=== PATIENT | male | born 1955 | race Caucasian/White ===

== ENCOUNTER 2016-12-25 02:28 | Emergency (ER) | payer MEDICARE, OTHER ==
[~2016-12-25] VITALS: Ht 177.8 cm; Wt 98.3 kg
[2016-12-25] MEDS ORDERED: IBUPROFEN 200 MG TABLET ONE (02:47)
[2016-12-25] MEDS ORDERED: OXYcodone/APAP 5/325MG TABLET ONE (02:47)
[2016-12-25] MEDS ORDERED: IBUPROFEN 200 MG TABLET PO ONE (03:00)
[2016-12-25] MEDS ORDERED: OXYcodone/APAP 5/325MG TABLET PO ONE (03:00)
[2016-12-25 04:31] VITALS: BP 148/97
== END 2016-12-25 04:33 | disposition home or self-care (01) ==
LOC: ED 03:16
DX: S16.1XXA Strain of muscle, fascia and tendon at neck level, initial encounter (principal); W01.0XXA Fall on same level from slipping, tripping and stumbling without subsequent striking against object, initial encounter; Y93.89 Activity, other specified; Y92.89 Other specified places as the place of occurrence of the external cause; Y99.8 Other external cause status
CPT/HCPCS: 72050; 99284

== ENCOUNTER 2017-01-18 23:53 | Emergency (ER) | payer OTHER ==
[~2017-01-18] VITALS: Ht 177.8 cm; Wt 99.0 kg
[2017-01-18 23:55] VITALS: BP 191/122
== END 2017-01-19 00:59 | disposition home or self-care (01) ==
LOC: ED 23:59
DX: L03.113 Cellulitis of right upper limb (principal); I10 Essential (primary) hypertension
CPT/HCPCS: 99283

== ENCOUNTER 2017-01-23 02:23 | Emergency (ER) | payer SELFPAY ==
[~2017-01-23] VITALS: Ht 177.8 cm; Wt 99.6 kg
[2017-01-23 02:25] VITALS: BP 190/138
[2017-01-23] MEDS ORDERED: LISI-167 PO (02:47)
[2017-01-23] MEDS ORDERED: SULFAMETH./TRIMETHOPRIM DS 800MG/160MG TABLET PO ONE (03:00)
[2017-01-23] MEDS ORDERED: SULFAMETH./TRIMETHOPRIM DS 800MG/160MG TABLET ONE (03:09)
== END 2017-01-23 03:15 | disposition home or self-care (01) ==
LOC: ED 03:02
DX: L02.413 Cutaneous abscess of right upper limb (principal); L03.113 Cellulitis of right upper limb; I10 Essential (primary) hypertension
CPT/HCPCS: 99283

== ENCOUNTER 2017-05-11 20:09 | Emergency (ER) | payer MEDICAID ==
[~2017-05-11] VITALS: Ht 177.8 cm; Wt 102.9 kg
[~2017-05-11 20:09] MED LIST: LISI-167 PO
[2017-05-11 20:58] LABS: RAPID INFLUENZA A Negative (Negative); RAPID INFLUENZA B Negative (Negative)
[2017-05-11] MEDS ORDERED: SODIUM CHLORIDE 0.9% 1,000ML IVBOLUS ONE (21:00)
[2017-05-11] MEDS ORDERED: ONDANSETRON 2MG/ML, 2ML IVPush ONE (21:00)
[2017-05-11 21:14] LABS: BASOPHILS # (AUTO) 0.03 x10^3/uL (0-0.1); BASOPHILS % (AUTO) 0 % (0-1); EOSINOPHILS # (AUTO) 0.12 x10^3/uL (0-0.4); EOSINOPHILS % (AUTO) 1 % (1-7); LYMPHOCYTES # (AUTO) 1.29 x10^3/uL (1-3.4); LYMPHOCYTES % (AUTO) 11 % (22-44); MD NO; MEAN CORPUSCULAR HGB CONC 33.4 g/dL (33.2-36.2); MEAN CORPUSCULAR VOLUME 86.9 fL (81-97); MEAN PLATELET VOLUME 8.4 fL (7.4-10.4); MONOCYTES # (AUTO) 1.42 x10^3/uL (0.2-0.8); MONOCYTES % (AUTO) 13 % (2-9); NEUTROPHILS % (AUTO) 75 % (42-75); PLATELET COUNT 200 x10^3/uL (130-400); RED CELL DISTRIBUTION WIDTH 14.6 % (9.4-14.8)
[2017-05-11] MEDS ORDERED: ACETAMINOPHEN 325 MG TABLET ONE (21:19)
[2017-05-11] MEDS ORDERED: ONDANSETRON 2MG/ML, 2ML ONE (21:19)
[2017-05-11 21:20] LABS: ALBUMIN 3.5 g/dL (3.4-5.0); ANION GAP 6 mmol/L (5-15); CALCIUM 8.9 mg/dL (8.5-10.1); CHLORIDE 102 mmol/L (98-107); CREATININE 0.93 mg/dL (0.7-1.3)
[2017-05-11] MEDS ORDERED: ACETAMINOPHEN 325 MG TABLET PO ONE (21:30)
[2017-05-11 22:04] VITALS: BP 169/99
[2017-05-17] MEDS ORDERED: OXYC5TAB2 PO (14:15)
== END 2017-05-11 22:06 | disposition home or self-care (01) ==
LOC: ED 20:39
DX: R05 Cough (principal); R11.2 Nausea with vomiting, unspecified; M79.1 Myalgia; I10 Essential (primary) hypertension; M54.12 Radiculopathy, cervical region
CPT/HCPCS: 36415; 71020; 80048; 82040; 85025; 87400; 96374; 99285; J2405; J7030